=== PATIENT | female | born 1965 | race Caucasian/White ===

== ENCOUNTER 2024-01-25 11:52 | Emergency (ER) | payer BC, SELFPAY ==
[2024-01-25 11:54] VITALS: BP 192/98
--- NOTE | 2024-01-25 12:27 | ED.GENMED ---
History of Present Illness
General
Chief Complaint: Abdominal Pain
Source: patient
Time Seen by Provider: 01/25/24 12:10
History of Present Illness
History of Present Illness:
58yoF with a history of Vtach s/p pacemaker/ICD placement presenting for evaluation of LUQ pain x 1 week. She reports intermittent sharp pains in her LUQ region. The pain seems to be worse at nighttime and will wake her up from sleep at night. Pain
also seems to be worse if she lays on her left side or lays flat. Pain radiates to the L flank. The pain is severe at times and sometimes causes nausea. She has periods during the day where she is pain-free. She has not tried anything OTC for her
symptoms. No prior history of similar pains. Patient was seen at urgent care prior to arrival. A urinalysis was done at urgent care which showed blood and she was sent to the ED for evaluation. She does endorse some urinary frequency but denies
other urinary symptoms. Patient denies any fevers, vomiting, palpitations, shortness of breath.
Phy Exam
General Physical Exam
General Presentation: well appearing and no apparent distress
General age: appears stated age
General Skin: warm and dry
General Habitus: normal
General Mental: alert
Cardiovascular Exam
Cardiovascular Exam: regular rate/rhythm
Pulmonary Exam
Pulmonary Exam: lungs clear, no respiratory distress, no crackles and no wheezing
Gastrointestinal Exam
Gastrointestinal Exam: soft, non distended, no cva tenderness and tender (Mild tenderness to LUQ. No rebound or guarding. No skin changes. )
Palpation: left upper quadrant: Mild tenderness
Skin Exam
Skin Exam: normal color and warm/dry
Psychiatric Exam
Psychiatric Exam: normal mood/affect
Course
Orders/Labs/Results
Orders:
Orders
01/25/24 11:57
EKG [Electrocardiogram (*1)] Urgent
Reason for Study: Abdominal Pain
EKG- Treatment ONCE
01/25/24 12:38
Complete Blood Count/With Diff Urgent
Comprehensive Metabolic Panel Urgent
D-Dimer Urgent
Lipase Urgent
Troponin I Urgent
Urinalysis Reflex To Culture Urgent
Date Specimen was Collected: 01/25/24
Time Specimen was Collected: 12:29
Urine Microscopic Reflex Cult Urgent
Urine Culture Urgent
IVORY Source: U
Specimen Description:
Date Specimen was Collected: 01/25/24
Time Specimen was Collected: 12:29
01/25/24 12:48
CR Chest - 2 Views Urgent
Comment:
Reason For Exam: Left lower rib pain
01/25/24 13:28
CT Pe/abd/pel W Urgent
Comment:
Reason For Exam: LUQ/L lower chest pain, elevated D-dimer
01/25/24 15:43
Ketorolac [Toradol] 15 mg IV NOW STA
Abnormal Lab Results
01/25/24
12:38
D-Dimer 0.84 H ug/mlFEU
(0.00-0.50)
BUN 22 H mg/dl
(7-17)
Ur Occult Blood Reflex Trace A
(Negative)
Leukocyte Esterase Rfl 2+ A
(Negative)
Urine WBC (Reflex) 16-20 A /HPF
(0-5)
01/25/24 12:38
01/25/24 12:38
Vital Signs
Initial and Last Documented VS:
Initial Vital Signs
Temp Pulse Resp BP Pulse Ox
98.1 F 60 16 192/98 98
01/25/24 11:54 01/25/24 11:54 01/25/24 11:54 01/25/24 11:54 01/25/24 11:54
Last Documented Vital Signs
Temp Pulse Resp BP Pulse Ox
98.1 F 72 18 168/111 100
01/25/24 11:54 01/25/24 16:04 01/25/24 16:04 01/25/24 16:04 01/25/24 16:04
MDM/Problems Addressed
Differential Diagnosis Includes:
58yoF here with LUQ pain x 1 week. Intermittent sharp pain. Worse at night and certain positions. Hematuria noted on UA at urgent care and she was sent to the ED for evaluation. She is hypertensive with otherwise normal vitals. She is well appearing
in no distress. There is mild LUQ tenderness on exam without signs of peritonitis. No skin changes noted. Differential diagnosis includes but is not limited to: musculoskeletal, early shingles, kidney stone, pyelonephritis, PE, pneumonia, pleural
effusion
Initial ED plan: Check cardiac labs, D-dimer, UA, EKG, and CXR.
*EKG
Interpreted by ED Provider?: Yes
EKG Intrepretation Date: 01/25/24
Heart Rate: 63
Rate: normal
Rhythm: ventricular paced
[place]: normal axis
Ischemia: no ischemia
*Critical Care Note
Total Time (30-74mins, 75-104mins- exclusive of procedures): Not Applicable
Update Note
Update Note:
Labs unremarkable including normal white count and renal function. EKG shows paced rhythm and troponin WNL. CXR is clear. D-dimer elevated and CTA CAP subsequently added. CT shows moderate elevation of the L hemidiaphragm which patient has a known
history of. She has a sniff test scheduled for next week to evaluate for diaphragmatic paralysis. No other acute findings noted on imaging. UA does show 2+ leukocytes although there is no imaging evidence of pyelonephritis. Unclear etiology of pain.
Will cover with cefdinir for possible UTI/early pyelonephritis. She was advised to monitor the area for any developing rash. She was advised to f/u closely with her PCP. ED return precautions discussed. She was discharged in stable condition.
ED Attending Note
-
Portions of this chart may have been created with voice recognition software.� Occasional wrong word or��sound alike� substitutions may have occurred due to the inherent limitations of voice recognition software.
Discharge Plan
Departure
Patient Disposition: Home (Routine Discharge)
Date of Disposition: 01/25/24
Time of Disposition: 15:43
Patient with high blood pressure during this ER visit?: Yes
Discharge Problem:
Left upper quadrant abdominal pain, Urinary tract infection
Instructions: Abdominal Pain
Prescriptions:
New
cefdinir 300 mg capsule
300 mg PO BID 7 Days Qty: 14 0RF
Referrals:
Leonel Birmingham MD [Family Provider] -
Activity Restrictions/Additional Instructions:
Take antibiotics as prescribed.
Take Tylenol and ibuprofen as needed for pain.
Please call your family doctor today to schedule a follow-up appointment. Return to the ER with any new or worsening symptoms.
Interventions
Interventions:
*Risk Screen - Suicide Last Done: 01/25/24 12:30
*General Assessment Last Done: 01/25/24 12:30
*Neglect/Abuse Screening Last Done: 01/25/24 12:30
*ED COVID-19 Vaccine History Last Done: 01/25/24 12:30
*Nursing Disposition Last Done: 01/25/24 16:04
AD-Ejxxoi-Qfacpbkkbt Assessment Last Done: 01/25/24 13:22
Discharge Date and Time
Discharge Date/Time: 01/25/24 16:06
Print Language: CITIZEN OF [place]
[2024-01-25 12:30] VITALS: BMI 33.1
[2024-01-25 12:39] VITALS: BP 155/91
[2024-01-25 12:48] LABS: % Basophils 0.4 % (0-2); % Eosinophils 1.5 % (0-6); % Immature Granulocytes 0.1 % (0-0.5); % Lymphocytes 22.6 % (20.5-51.1); % Monocytes 6.6 % (1.7-9.3); % Neutrophils 68.8 % (42.2-75.2); Absolute Eosinophils 0.1 10^3/uL (0-0.7); Absolute Lymphocytes 1.8 10^3/uL (1.2-3.4); Absolute Monocytes 0.5 10^3/uL (0.1-0.6); Absolute Neutrophils 5.4 10^3/uL (1.4-6.5); Hematocrit 44.3 % (37.0-47.0); Hemoglobin 14.9 g/dL (12.0-16.0); Mean Corp Hgb Conc. 33.6 g/dL (33.0-37.0); Mean Corpuscular Hgb 28.1 pg (27.0-31.0); Mean Corpuscular Volume 83.4 fL (81.0-99.0); Mean Platelet Volume 9.7 fL (7.4-10.4); Nucleated Red Blood Cells % 0 %; Platelet Count 335 10^3/uL (130-400); Red Blood Cell Count 5.31 10^6/uL (4.20-5.40); Red Cell Dist. Width 13.2 % (11.5-14.5); White Blood Cell Count 7.9 10^3/uL (4.8-10.8)
[2024-01-25 12:55] LABS: Urine Albumin Negative (Neg - Trace); Urine Bilirubin Negative (Negative); Urine Character Clear (Clear); Urine Color Yellow; Urine Glucose Negative (Negative); Urine Ketone Negative (Negative); Urine Leukocyte 2+ (Negative); Urine Nitrite Negative (Negative); Urine Occult Blood Trace (Negative); Urine Specific Gravity 1.015 (<1.030); Urine Urobilinogen Negative (Neg - 1+)
[2024-01-25 13:00] VITALS: BP 159/90
[2024-01-25 13:00] LABS: ALT (SGPT) 16 U/L (0-35); AST (SGOT) 28 U/L (14-36); Albumin 4.6 g/dl (3.5-5.0); Alkaline Phosphatase 92 U/L (38-126); Blood Urea Nitrogen 22 mg/dl (7-17); Calcium 9.8 mg/dl (8.4-10.2); Carbon Dioxide 26 mmol/L (22-30); Chloride 103 mmol/L (98-107); Estimated Creatinine Clearance 64 ml/min; Glucose 94 mg/dl (70-99); Lipase 200 U/L (23-300); Potassium 4.8 mmol/L (3.5-5.1); Sodium 140 mmol/L (135-145); Total Protein 7.1 g/dl (6.3-8.2); eGFR > 60.00
[2024-01-25 13:04] LABS: D-Dimer 0.84 ug/mlFEU (0.00-0.50)
[2024-01-25 13:11] LABS: Troponin I < 0.012 ng/ml
[2024-01-25 15:34] LABS: Urine Squamous Cell >30 /LPF (Few)
[2024-01-25 15:35] LABS: Urine Amorphous Seen; Urine Red Blood Cell 0-2 /HPF (0-2)
[2024-01-25 15:36] LABS: Urine White Cell 16-20 /HPF (0-5)
[2024-01-25] MEDS: TORADOL 15 MG IV (15:50)
[2024-01-25 16:04] VITALS: BP 168/111
== END 2024-01-25 16:06 | disposition home or self-care (01) ==
LOC: EMR 11:52
PROVIDERS: Physician Assistant; EMERGENCY PHYSICIAN Emergency Medicine; FAMILY PHYSICIAN Family Medicine
DX: R10.12 Left upper quadrant pain (principal); N39.0 Urinary tract infection, site not specified; Z95.810 Presence of automatic (implantable) cardiac defibrillator
CPT/HCPCS: 99284; 96374; 71046; 71275; 74177; 80053; 81003; 81015; 83690; 84484; 85025; 85379; 87077; 87086; 87147; 93005; Q9967